=== PATIENT | female | born 1990 | race Hispanic/Latino ===

== ENCOUNTER 2021-08-05 21:33 | Emergency (ER) | payer SELFPAY ==
--- OUTSIDE RECORDS SUMMARY | 2021-08-05 21:36 | XMS REPORT | Continuity of Care Document ---
:1990 Author Organization [facility] t Address [address] [place] [address] Care Team Providers Name Role Phone DR LISANDRO Attending Clinician Unavailable DR LISANDRO Admitting Clinician Unavailable Payers Payer Name Policy Type Policy Number Effective Date Expiration Date S ource Problems This patient has no known problems. Allergies, Adverse Reactions, Alerts Allergy Allergy Status Severity Reaction(s) Onset Inactive Treating Comm ents Source Name Type Date Date Clinician No Known DA Active U 2020-0 [facility] 04-11 [facility] 00:00: e 00 [facility] No Known DA Active U 2020-0 [facility] Allerg 04-11 [facility] 00:00: e 00 [facility] Medications This patient has no known medications. Procedures This patient has no known procedures. Encounters Start End Encounter Admission Attending Care Care Encounter Source Date/Time Date/Time Type Type Clinicians Facility Department ID 2020-04-11 Inpatient [facility] [id number] [facility] 15:59:00 [facility] 2020-03-17 2020-03-17 Outpatient AMMON CANDELARIA E[facility] [id number] 18:22:00 [facility]:30[facility] Results Test Description Test Time Test Comments Results Result Comments Source [employer] 8 Panel *OW* jamie 2020-03-17 22:04:00 Test Item Value Reference Range Interpretation Comme nts GLUCOSE (test code = GGUL) 82 mg/dL 73-118 BUN (test code = GBUN) 15 mg/dL 7-22 CREATININE (test code = GCRE) 0.7 mg/dL 0.6-1.2 CK TOTAL (test code = GCK) 48 U/L 30-190 SODIUM (test code = GNA+) 137 mmol/L 128-145 POTASSIUM (test code = GK+) 3.5 mmol/L 3.6-5.1 L CHLORIDE (test code = GCL-) 101 mmol/L 98-108 TCO2 (test code = GTC02) 27 mmol/L 18-33 URINALYSIS W/O MICROSCOPICOW2020-03-17 21:31:00 Test Item Value Reference Range Interpretation Comments COLOR (test code = Yellow YELLOW COLU) CLARITY (test code = Clear CLEAR CLA) GLUCOSE UR (test Negative NEGATIVE code = UA GLUCOSE) BILI UR (test code = 3+ NEGATIVE A BILE) KETONES UR (test 3+ NEGATIVE A code = MARIAH) SP GRAVITY (test 1.025 1.005-1.030 code = SPGR) PH UR (test code = 6.0 4.5-8.0 PH) PROTEIN UR (test 1+ NEGATIVE A code = PU) NITRITE UR (test Negative NEGATIVE code = NITRITE) UROBIL UR (test code 1.0 E.U./dL = GUROQ) UROBIL UR (test code UROBILINOGEN = GUROQC) REFERENCE RANGE 0.2 - 1.0 EU/dL BLOOD UR (test code Negative NEGATIVE = UA BLOOD) LEUK ES UR (test Negative NEGATIVE code = LEUK) CBC (INCLUDES AUTOMATED DIFFERENTIAL) *2020-03-17 20:30:00 Test Item Value Reference Range Interpretation Comments WBC (test code = WBC) 12.3 10\\S\\3/uL 4.5-11.0 H RBC (test code = RBC) 4.63 10\\S\\6/uL 4.30-5.70 HGB (test code = HBG) 12.8 g/dL 12.0-15.5 HCT (test code = HCT) 40.9 % 35.0-44.0 MCV (test code = MCV) 88.3 fL 81.0-99.0 MCH (test code = MCH) 27.6 pg 27.0-31.0 MCHC (test code = MCHC) 31.3 g/dL 32.0-36.0 L RDW (test code = RDW) 12.9 % 11.5-14.5 PLT (test code = PLT) 316 10\\S\\3/uL 130-400 MPV (test code = OMPV) 8.0 fL 6.2-10.2 NEUTROP # (test code = NE#) 8.7 10\\S\\3/uL 1.6-8.0 H LYMPH # (test code = LY#) 2.4 10\\S\\3/uL 1.1-3.5 MID # (test code = GMID#) 1.2 10\\S\\3/uL 0.0-1.1 H GRA % (test code = GRA%) 70.4 % 35.0-73.0 LYMPH % (test code = GLY%) 19.7 % 20.0-55.0 L MID % (test code = GMID%) 9.9 % 0.0-10.0 SARS-CoV (RAPID ANTIGEN) WH2020-03-17 19:33:00 Test Item Value Reference Range Interpretation Comments SARS-CoV (ANTIGEN) NEGATIVE NEGATIVE (test code = COVAG) COVID AG (test This test has been code = COVAGC) marketed under the FDA Emergency Use Authorization (EUA) to meet challenges of the COVID-19 pandemic. The validation standards normally enforced by the FDA and the College of the [place] [employer] (CAP) are more stringent than those required for this test. Therefore, the result should be interpreted with caution and close attention to other clinical and epidemiological data DIRECT STREP GROUP AOW2020-03-17 19:15:00 Test Item Value Reference Range Interpretation Comments STREP A AG (test code = STREP) POSITIVE NEGATIVE A CHEST 1 VIEW [id number] 07:30:[address] [id number] IMAGING REPORTPatient Name: Devika SAGE of Service: [id number]: 30 Sex: F Order #: [id number] Room: ERDOB: 1990 X-Ray Number: [id number] Record Number: [id number] Hospital Number: [id number] Physician: April URBINA Physician: KATY DUNN.11/20/2018 2:06 AMHistory: Coughing.Technique: Single AP chest projection.Findings: Single chest projection demonstrates normal heart size and clearlungs. The osseous structures appear intact.Impression:No acute- appearing cardiopulmonary abnormalities.Electronically Signed By: Loki Santos M.D., 11/20/2018 7:27 AMLegally authenticated by ELOY Rico 2018-11-20 07:27:[id number] 02:56:00 Test Item Value Reference Range Interpretation Comments WBC (test code = 10.4 K/UL 3.5-10.9 WBC) RBC (test code = 4.66 M/UL 4.0-5.0 RBC) HGB (test code = 12.9 G/DL 11.5-15.5 HGB) HCT (test code = 41.2 % 34-46 HCT) MCV (test code = 88.4 FL 80-98 MCV) MCH (test code = 27.7 PG 28-32 L MCH) MCHC (test code = 31.3 G/DL 32.5-36.5 L MCHC) RDW (test code = 13.3 % 11.5-14.5 RDW) PLT (test code = 375 K/UL 150-450 PLT) MPV (test code = 9.6 FL 7.4-10.4 MPV) MANDIFF (test code = NO MANDIFF) SCAN (test code = NO SCAN) NEUT% (test code = 58.4 % 40-75 NEUT%) LYMPH% (test code = 30.7 % 24-44 LYMPH%) MONO% (test code = 8.1 % 0-13 MONO%) EOS% (test code = 1.5 % 0-4 EOS%) BASO % (test code = 0.5 % 0-2 BASO%) IG (test code = IG) 0 % 0-1 IG% (test code = 0.8 % 0-1 IG% = Metam yelocytes, IG%) Myelocytes, and Promyelocytes. (Immature neutr ophils not including " bands".) > 3% IG indic ates risk of sepsis NRBC% (test code = 0 /100 WBC NRBC%) ABS NEUT (test code 6.1 K/UL 1.2-7.2 = NEUT) NEG STREP SCRN CONFIRM [id number] 06:58:00 Test Item Value Reference Range Interpretation Comments Report Text (test CWJ 2018-11-07 749 code = Report Text) Report Text7 (test NORMAL RESPIRATORY ALEX code = Report Text7) ISOLATED Report Text8 (test PRELIMINARY REPORT code = Report Text8) Report Text9 (test code = Report Text9) Report Text10 (test DMB 2018-11-08 658 code = Report Text10) Report Text11 (test STREP SCREEN NEGATIVE, code = Report CULTURE NEGATIVE FOR Text11) Report Text12 (test GROUP A STREP - FINAL code = Report REPORT. Text12) INFLUENZA [id number] 08:53:00 Test Item Value Reference Range Interpretation Comments FLU A (test code = FLU A) POSITIVE NEGATIVE FLU B (test code = FLU B) NEGATIVE NEGATIVE FLU INTERNAL POSITIVE CNTRL (test PASS PASS code = FLU IPC) INFLUENZA LOT # (test code = 5947082 FLULOT) INFLUENZA EXPIRATION DATE (test 2020-10-31 code = FLUEXP) GROUP A STREP [id number] 08:52:00 Test Item Value Reference Range Interpretation Comments GROUP A STREP SCREEN NEGATIVE NEGATIVE Cultu re set up to (test code = STREPGRA) confi rm negative Strep Screen STREP A INTERNAL POS PASS PASS CNTRL (test code = STRPAIPC) STREP A LOT # (test [id number] code = STRPALOT) STREP A EXPIRATION DATE 2021-01-08 (test code = STRPAEXP) Culture set up to confirm negative Strep Screen
[2021-08-05 22:51] LABS: SARS-COV-2 RT PCR NEGATIVE (NEGATIVE)
--- NOTE | 2021-08-05 23:15 | EDPHYS ---
Physician Documentation [facility] Name: Romina Syed Agent Age: 31 yrs Sex: Female : 1990 Arrival Date: 08/05/2021 Time: 21:36 Bed 10 Private MD: MYRIAM Physician Anton Conklin HPI: 08/05 21:58 This 31 yrs old Female presents to ER via Ambulatory with complaints of Ear cp Pain, BODY ACHE, Congestion, Headache. 21:58 The patient presents with pain, that is acute. The complaints affect the left ear. 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 - Social history:: Smoking status: Patient reports the use of cigarette tobacco products, denies chronic smoking, but will smoke occasionally, Patient uses alcohol, occasionally. Patient/guardian denies using street drugs. ROS: 22:05 Constitutional: Positive for body aches, Negative for chills, fever, poor PO intake. cp 22:05 Eyes: Negative for injury, pain, redness, and discharge. cp 22:05 ENT: Positive for ear pain, Negative for drainage from ear(s), sore throat, difficulty swallowing, difficulty handling secretions. 22:05 Cardiovascular: Negative for chest pain. 22:05 Respiratory: Positive for cough, Negative for shortness of breath, wheezing. 22:05 Abdomen/GI: Negative for vomiting, diarrhea, constipation. 22:05 Neuro: Positive for headache, Negative for altered mental status, weakness. 22:05 All other systems are negative. Exam: 22:10 Constitutional: The patient appears in no acute distress, alert, awake, comfortable, cp non-toxic, well developed, well nourished. 22:10 Head/Face: Normocephalic, atraumatic. cp 22:10 Eyes: Periorbital structures: appear normal, Conjunctiva: normal, no exudate, no injection, Sclera: no appreciated abnormality, Lids and lashes: appear normal, bilaterally. 22:10 ENT: External ear(s): are unremarkable, Ear canal(s): are normal, clear, TM's: bulging, is not appreciated, bilaterally, erythema, that is mild, on the left, Nose: is normal, Mouth: Lips: moist, Oral mucosa: moist, Posterior pharynx: Airway: no evidence of obstruction, patent. 22:10 Neck: Lymph nodes: no appreciated lymphadenopathy. 22:10 Chest/axilla: Inspection: normal. 22:10 Cardiovascular: Rate: normal, Rhythm: regular. 22:10 Respiratory: the patient does not display signs of respiratory distress, Respirations: normal, no use of accessory muscles, no retractions, labored breathing, is not present, Breath sounds: are clear throughout, no decreased breath sounds, no stridor, no wheezing. 22:10 Abdomen/GI: Exam negative for discomfort, distension, guarding, Inspection: abdomen appears normal. Vital Signs: 21:48 BP 117 / 86; Pulse 84; Resp 16 S; Temp 98(O); Pulse Ox 100% on R/A; Weight 72.57 kg bb (R); Height 5 ft. 6 in. (167.64 cm) (R); Pain 7/10; 23:12 BP 121 / 88; Pulse 80; Resp 16; Pulse Ox 100% on R/A; ld1 21:48 Body Mass Index 25.82 (72.57 kg, 167.64 cm) bb MDM: 21:[address] [facility] 23:14 Data reviewed: vital signs, nurses notes, lab test result(s). cp 23:14 Differential diagnosis: otitis media, otitis externa, strep throat, COVID-19, cp influenza. Counseling: I had a detailed discussion with the patient and/or guardian regarding: the historical points, exam findings, and any diagnostic results supporting the discharge/admit diagnosis, to return to the emergency department if symptoms worsen or persist or if there are any questions or concerns that arise at home. 08/05 22:08 Order name: COVID-19/FLU A+B; Complete Time: 23:13 EDMS Administered Medications: No medications were administered Disposition Summary: 08/05/21 23:14 Discharge Ordered Location: Home cp Problem: new cp Symptoms: have improved cp Condition: Stable cp Diagnosis - Otitis media, unspecified, left ear cp - Acute upper respiratory infection, unspecified cp Followup: cp - With: Private Physician - When: 2 - 3 days - Reason: Worsening of condition Discharge Instructions: - Discharge Summary Sheet cp - Otitis Media, Adult cp - Upper Respiratory Infection, Adult cp - Cool Mist Vaporizer cp Forms: - Medication Reconciliation Form cp - Thank You Letter cp - Antibiotic Education cp - Prescription Opioid Use cp - Work release form ld1 Prescriptions: - Augmentin 875-125 mg Oral Tablet - take 1 tablet by ORAL route every 12 hours for 10 days; 20 tablet; Refills: 0, cp Product Selection Permitted - Tessalon Perles 100 mg Oral Capsule - take 2 capsule by ORAL route every 8 hours As needed; 30 capsule; Refills: 0, cp Product Selection Permitted Addendum: 08/08/2021 07:48 Co-signature as Attending Physician, Anton Conklin MD I agree with the assessment and c coronel plan of care. Signatures: Dispatcher [employer] EDAnton Glez MD MD cha Ballard, Brenda, RN RN bb Anton Broussard PA PA cp Corrections: (The following items were deleted from the chart) 08/05 22:08 21:55 CORONAVIRUS+MR.LAB.BRZ ordered. EDMS EDMS 22:08 21:55 Influenza Screen (A \T\ B)+BA.LAB.BRZ ordered. EDMS EDMS
--- NOTE | 2021-08-05 23:15 | ER ---
Nurse's Notes [facility] [place] Name: Romina Syed Agent Age: 31 yrs Sex: Female : 1990 Arrival Date: 08/05/2021 Time: 21:36 Bed 10 Private MD: Diagnosis: Otitis media, unspecified, left ear;Acute upper respiratory infection, unspecified Presentation: 08/05 21:48 Chief complaint: Patient states: she is having ear pain, cough, body aches, headache bb and a runny nose x 2 days is taking OTC medications with no relief. Coronavirus screen: headache, muscle pain, runny nose, Client presents with at least one sign or symptom that may indicate coronavirus-19. Standard/surgical mask placed on the client. Ebola Screen: No symptoms or risks identified at this time. Initial Sepsis Screen: Does the patient meet any 2 criteria? No. Patient's initial sepsis screen is negative. Does the patient have a suspected source of infection? No. Patient's initial sepsis screen is negative. Risk Assessment: Do you want to hurt yourself or someone else? Patient reports no desire to harm self or others. Onset of symptoms was August 2021. 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 - Social history:: Smoking status: Patient reports the use of cigarette tobacco products, denies chronic smoking, but will smoke occasionally, Patient uses alcohol, occasionally. Patient/guardian denies using street drugs. Screenin:12 Abuse screen: Denies threats or abuse. Denies injuries from another. Nutritional ld1 screening: No deficits noted. Tuberculosis screening: No symptoms or risk factors identified. Fall Risk None identified. Assessment: 23:11 Reassessment: See triage assessment. General: Appears in no apparent distress. ld1 comfortable, Behavior is calm, cooperative, appropriate for age. Pain: Denies pain. Neuro: Level of Consciousness is Oriented to person, place, time, situation. EENT: No deficits noted. Vital Signs: 21:48 BP 117 / 86; Pulse 84; Resp 16 S; Temp 98(O); Pulse Ox 100% on R/A; Weight 72.57 kg bb (R); Height 5 ft. 6 in. (167.64 cm) (R); Pain 7/10; 23:12 BP 121 / 88; Pulse 80; Resp 16; Pulse Ox 100% on R/A; ld1 21:48 Body Mass Index 25.82 (72.57 kg, 167.64 cm) ED Course: 21:36 Patient arrived in ED. es 21:42 Anton Broussard PA is PHCP. cp 21:42 Anton Conklin MD is Attending Physician. cp 21:50 Triage completed. bb 21:50 Arm band placed on Patient placed in an exam room. Family accompanied patient. bb 23:12 Patient has correct armband on for positive identification. Bed in low position. Call ld1 light in reach. Side rails up X2. Pulse ox on. NIBP on. 23:12 No provider procedures requiring assistance completed. Patient did not have IV access ld1 during this emergency room visit. Administered Medications: No medications were administered Outcome: 23:14 Discharge ordered by . cp 23:26 Discharged to home ambulatory. ld1 23:26 Condition: stable 23:26 Discharge instructions given to patient, Instructed on discharge instructions, follow up and referral plans. medication usage, Demonstrated understanding of instructions, follow-up care, medications, Prescriptions given X 2. 23:26 Patient left the ED. ld1 Signatures: Ally Mcdaniels Brenda RN RN bb Anton Broussard PA PA Martha Graves, RN RN ld1
[2021-08-05 23:40] VITALS: TEMP 98; O2SAT 100
[2021-08-05 23:42] VITALS: BP 121/88
== END 2021-08-05 23:26 | disposition home or self-care (01) ==
LOC: ER 21:33
DX: H66.92 Otitis media, unspecified, left ear (principal); J06.9 Acute upper respiratory infection, unspecified; Z20.822 Contact with and (suspected) exposure to COVID-19
CPT/HCPCS: 0240U; 99283

== ENCOUNTER 2021-09-06 10:31 | Emergency (ER) | payer SELFPAY ==
--- OUTSIDE RECORDS SUMMARY | 2021-09-06 10:34 | XMS REPORT | Continuity of Care Document ---
:1990 Author Organization [facility] t Address [address] [place] [address] Care Team Providers Name Role Phone DR LISANDRO Attending Clinician Unavailable DR LISANDRO Admitting Clinician Unavailable Payers Payer Name Policy Type Policy Number Effective Date Expiration Date S ource Problems This patient has no known problems. Allergies, Adverse Reactions, Alerts Allergy Allergy Status Severity Reaction(s) Onset Inactive Treating Comm ents Source Name Type Date Date Clinician No Known DA Active U 2020-0 [facility] Allerg 04-11 [facility] 00:00: e 00 [facility] No Known DA Active U 2020-0 [facility] Allergie 04-11 [facility] 00:00: e 00 [facility] Medications This patient has no known medications. Procedures This patient has no known procedures. Encounters Start End Encounter Admission Attending Care Care Encounter Source Date/Time Date/Time Type Type Clinicians Facility Department ID 2020-04-11 Inpatient [facility] [id number] [facility] 15:59:00 [facility] 2020-03-17 2020-03-17 Outpatient AMMON CANDELARIA ECC [id number] 18:22:00 [facility] Results Test Description Test Time Test Comments [...] the FDA and the College of the [place] [employer] (CAP) are more stringent than those required for this test. Therefore, the result should be interpreted with caution and close attention to other clinical and epidemiological data DIRECT STREP GROUP AOW2020-03-17 19:15:00 Test Item Value Reference Range Interpretation Comments STREP A AG (test code = STREP) POSITIVE NEGATIVE A CHEST 1 VIEW [id number] 07:30:[address] [id number] IMAGING REPORTPatient Name: Devika SAGE of Service: [id number]: 28 Sex: F Order #: [id number] Room: ERDOB: 1990 X-Ray Number: [id number] Record Number: [id number] Hospital Number: [id number] Physician: April URBINA Physician: KATY DUNN.11/20/2018 2:06 AMHistory: Coughing.Technique: Single AP chest projection.Findings: Single chest projection demonstrates normal heart size and clearlungs. The osseous structures appear intact.Impression:No acute- appearing cardiopulmonary abnormalities.Electronically Signed By: Loki Santos M.D., 11/20/2018 7:27 AMLegally authenticated by ELOY Rico 2018-11-20 07:27:[id number] 02:56:00 Test Item Value Reference Range Interpretation [...] 1.2-7.2 = NEUT) NEG STREP SCRN CONFIRM [id number] 06:58:00 Test Item Value Reference Range Interpretation [...] FINAL code = Report REPORT. Text12) INFLUENZA [id number] 08:53:00 Test Item Value Reference Range Interpretation Comments FLU A (test code = FLU A) POSITIVE NEGATIVE FLU B (test code = FLU B) NEGATIVE NEGATIVE FLU INTERNAL POSITIVE CNTRL (test PASS PASS code = FLU IPC) INFLUENZA LOT # (test code = [id number] FLULOT) INFLUENZA EXPIRATION DATE (test 2020-10-31 code = FLUEXP) GROUP A STREP [id number] 08:52:00 Test Item Value Reference Range Interpretation Comments GROUP A STREP SCREEN NEGATIVE NEGATIVE Cultu re set up to (test code = STREPGRA) confi rm negative Strep Screen STREP A INTERNAL POS PASS PASS CNTRL (test code = STRPAIPC) STREP A LOT # (test [id number] code = STRPALOT) STREP A EXPIRATION DATE 2021-01-08 (test code = STRPAEXP) Culture set up to confirm negative Strep Screen
[2021-09-06 12:44] LABS: SARS-COV-2 RT PCR POSITIVE (NEGATIVE)
--- NOTE | 2021-09-06 13:01 | ER ---
Nurse's Notes [facility] [place] Name: Romina Syed Agent Age: 31 yrs Sex: Female : 1990 Arrival Date: 09/06/2021 Time: 10:32 Bed Waiting Private MD: Diagnosis: Coronavirus infection, unspecified Presentation: 09/06 11:13 Chief complaint: Patient states: Cough for 2 weeks. Congestion, body aches, sore ll1 throat, BURNS for 2 days. Coronavirus screen: Vaccine status: Patient reports receiving the 1st dose of the Covid vaccine. Client denies travel out of the [place] in the last 14 days. congestion, cough unrelated to allergies, difficulty breathing, shortness of breath. Ebola Screen: Patient denies travel to an Ebola-affected area in the 21 days before illness onset. Initial Sepsis Screen: Does the patient meet any 2 criteria? No. Patient's initial sepsis screen is negative. Does the patient have a suspected source of infection? No. Patient's initial sepsis screen is negative. Risk Assessment: Do you want to hurt yourself or someone else? Patient reports no desire to harm self or others. Onset of symptoms was August 22, 2021. 11:13 Method Of Arrival: Ambulatory ll1 11:13 Acuity: DEISY 4 ll1 Triage Assessment: 11:16 General: Appears in no apparent distress. Behavior is calm, cooperative, appropriate ll1 for age. Pain: Complains of pain in head Quality of pain is described as aching. EENT: Nares are clear Reports nasal congestion. Neuro: No deficits noted. Cardiovascular: No deficits noted. Respiratory: Reports cough that is Onset: The symptoms/episode began/occurred 2 weeks, the patient has mild shortness of breath. 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 - Social history:: Smoking status: Patient reports the use of cigarette tobacco products, smokes one-half pack cigarettes per day. Screenin:17 Abuse screen: Denies threats or abuse. Nutritional screening: No deficits noted. ll1 Tuberculosis screening: No symptoms or risk factors identified. Fall Risk Total Riggins Fall Scale indicates No Risk (0-24 pts). Assessment: 12:15 Reassessment: No changes from previously documented assessment. Patient and/or family ll1 updated on plan of care and expected duration. Pain level reassessed. Patient is alert, oriented x 3, equal unlabored respirations, skin warm/dry/pink. Cardiovascular: Rhythm is regular. Respiratory: Airway is patent Respiratory effort is even, unlabored. 13:05 Reassessment: No changes from previously documented assessment. Patient and/or family ll1 updated on plan of care and expected duration. Pain level reassessed. Patient is alert, oriented x 3, equal unlabored respirations, skin warm/dry/pink. Respiratory: Breath sounds are clear bilaterally. Vital Signs: 11:13 BP 170 / 80; Resp 16; Temp 97.0; Pulse Ox 100% ; Weight 74.84 kg; Height 5 ft. 6 in. ll1 (167.64 cm); Pain 5/10; 11:13 Pulse 90; ll1 11:13 Body Mass Index 26.63 (74.84 kg, 167.64 cm) ll1 ED Course: 10:32 Patient arrived in ED. am2 11:10 Leela Blanc FNP-C is [facility]. kb 11:10 Yung Bliss MD is Attending Physician. kb 11:14 Triage completed. ll1 11:15 Arm band placed on. ll1 11:17 Patient has correct armband on for positive identification. Bed in low position. Call ll1 light in reach. Side rails up X 1. Cardiac monitoring not applicable on this patient. 13:09 No provider procedures requiring assistance completed. Patient did not have IV access ll1 during this emergency room visit. Administered Medications: No medications were administered Outcome: 13:00 Discharge ordered by . kb 13:09 Patient left the ED. ll1 13:09 Discharged to home ambulatory. ll1 13:09 Condition: stable 13:09 Discharge instructions given to patient, Instructed on discharge instructions, follow up and referral plans. Demonstrated understanding of instructions, follow-up care. Signatures: Leela Blanc FNP-C FNP-Chaya Nicole am2 Morgan Stubbs RN RN ll1 Corrections: (The following items were deleted from the chart) 11:16 11:13 Pulse 73bpm; Resp 16bpm; Pulse Ox 100%; Temp 97.0F; 74.84 kg; Height 5 ft. 6 in.; ll1 BMI: 26.6; Pain 5/10; ll1
--- NOTE | 2021-09-06 13:01 | EDPHYS ---
Physician Documentation [facility] Name: Romina Syed Agent Age: 31 yrs Sex: Female : 1990 Arrival Date: 09/06/2021 Time: 10:32 Bed Waiting Private MD: ED Physician Yung Bliss HPI: 09/06 12:59 This 31 yrs old Female presents to ER via Ambulatory with complaints of Cough, kb Breathing Difficulty, Headache, Chest Pain. 12:59 The patient or guardian reports cough, that is intermittent, described as mild, flu kb symptoms, low-grade fever, myalgias. Onset: The symptoms/episode began/occurred 2 day(s) ago. Severity of symptoms: At their worst the symptoms were moderate, in the emergency department the symptoms are unchanged. Modifying factors: The symptoms are alleviated by nothing, the symptoms are aggravated by nothing. Associated signs and symptoms: Pertinent positives: sore throat, Pertinent negatives: chest pain, diarrhea, ear ache, fever, nausea, rhinorrhea, vomiting. The patient has not experienced similar symptoms in the past. The patient has not recently seen a physician. Pt complains of cough, congestion, sore throat, headache and bodyaches for 2 dasy. . 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 - Social history:: Smoking status: Patient reports the use of cigarette tobacco products, smokes one-half pack cigarettes per day. ROS: 12:58 Abdomen/GI: Negative for abdominal pain, nausea, vomiting, diarrhea, and constipation. kb 12:58 Constitutional: Positive for body aches, malaise. 12:58 ENT: Positive for sinus congestion, sore throat. 12:58 Respiratory: Positive for cough, Negative for dyspnea on exertion, hemoptysis, orthopnea, pleurisy, shortness of breath, sputum production, wheezing. 12:58 Neuro: Positive for headache. 12:58 All other systems are negative. Exam: 12:58 Constitutional: This is a well developed, well nourished patient who is awake, alert, kb and in no acute distress. Head/Face: Normocephalic, atraumatic. ENT: Moist Mucous membranes Cardiovascular: Regular rate and rhythm with a normal S1 and S2. No gallops, murmurs, or rubs. No pulse deficits. Respiratory: Respirations even and unlabored. No increased work of breathing. Talking in full sentences Skin: Warm, dry with normal turgor. Normal color. MS/ Extremity: Pulses equal, no cyanosis. Neurovascular intact. Full, normal range of motion. Neuro: Awake and alert, GCS 15, oriented to person, place, time, and situation. Moves all extremities. Normal gait. Psych: Awake, alert, with orientation to person, place and time. Behavior, mood, and affect are within normal limits. Vital Signs: 11:13 BP 170 / 80; Resp 16; Temp 97.0; Pulse Ox 100% ; Weight 74.84 kg; Height 5 ft. 6 in. ll1 (167.64 cm); Pain 5/10; 11:13 Pulse 90; ll1 11:13 Body Mass Index 26.63 (74.84 kg, 167.64 cm) ll1 MDM: 11:10 Patient medically screened. kb 12:59 Data reviewed: vital signs, nurses notes. Data interpreted: Pulse oximetry: on room air kb is 100 %. Interpretation: normal. Counseling: I had a detailed discussion with the patient and/or guardian regarding: the historical points, exam findings, and any diagnostic results supporting the discharge/admit diagnosis, lab results, the need for outpatient follow up, a family practitioner, to return to the emergency department if symptoms worsen or persist or if there are any questions or concerns that arise at home. 09/06 11:16 Order name: COVID-19/FLU A+B (Document "Date of Onset" if Symptomatic) 09/06 11:16 Order name: COVID-19/FLU A+B; Complete Time: 12:55 EDMS Administered Medications: No medications were administered Disposition: 17:43 Co-signature as Attending Physician, Yung Bliss MD I agree with the assessment and rn plan of care. Attestation: The patient's history, exam findings, diagnostics, and a summary of any interventions or procedures was reviewed in detail with Leela GUTIERREZ. Disposition Summary: 09/06/21 13:00 Discharge Ordered Location: Home kb Condition: Stable kb Diagnosis - Coronavirus infection, unspecified kb Followup: kb - With: Emergency Department - When: As needed - Reason: Worsening of condition Followup: kb - With: Private Physician - When: 2 - 3 days - Reason: Recheck today's complaints, Continuance of care, Re-evaluation by your physician Discharge Instructions: - Discharge Summary Sheet kb - Viral Respiratory Infection, [id number] kb - COVID-19 kb Forms: - Medication Reconciliation Form kb - Thank You Letter kb - Antibiotic Education kb - Prescription Opioid Use kb - Work release form ll1 Signatures: Dispatcher [employer] EDLeela Durham, HEAVY MEDIA OPERATOR-C HEAVY MEDIA OPERATOR-Yung Alvarez MD MD rn Morgan Stubbs RN RN ll1
[2021-09-06 13:16] VITALS: BP 170/80; TEMP 97; O2SAT 100
== END 2021-09-06 13:09 | disposition home or self-care (01) ==
LOC: ER 10:31
DX: U07.1 COVID-19 (principal); F17.210 Nicotine dependence, cigarettes, uncomplicated
CPT/HCPCS: 0240U; 99281

== ENCOUNTER 2021-09-07 17:27 | Emergency (ER) | payer SELFPAY ==
--- OUTSIDE RECORDS SUMMARY | 2021-09-07 17:30 | XMS REPORT | Continuity of Care Document ---
:1990 Author Organization [facility] t Address [address] [place] [address] Care Team Providers Name Role Phone DR [...] Known DA Active U 2020-0 [facility] Allergie 04-11 [facility] 00:00: e 00 [facility] No Known DA Active U 2020-0 [facility] Allergie 04-11 [facility] 00:00: e 00 [facility] Medications This patient has no known medications. Procedures This patient has no known procedures. Encounters Start End Encounter Admission Attending Care Care Encounter Source Date/Time Date/Time Type Type Clinicians Facility Department ID 2020-04-11 Inpatient [facility] [id number] [facility] 15:59:00 [facility] 2020-03-17 2020-03-17 Outpatient [facility] [id number] 18:22:00 [facility] Results Test Description Test Time Test [...] the FDA and the [employer] (CAP) are more stringent than those required for this test. Therefore, the result should be interpreted with caution and close attention to other clinical and epidemiological data DIRECT STREP GROUP AOW2020-03-17 19:15:00 Test Item Value Reference Range Interpretation Comments STREP A AG (test code = STREP) POSITIVE NEGATIVE A CHEST 1 VIEW [id number] 07:30:[address] [address] REPORTPatient Name: Devika SAGE of Service: [id number]: 28 Sex: F Order #: [id number] Room: QERDOB: 1990 X-Ray Number: [id number] Record Number: [id number] [facility] Number: [id number] Physician: April URBINA Physician: KATY DUNN.11/20/2018 2:06 AMHistory: Coughing.Technique: Single AP chest projection.Findings: Single chest projection demonstrates normal heart size and clearlungs. The osseous structures appear intact.Impression:No acute- appearing cardiopulmonary abnormalities.Electronically Signed By: Loki Santos M.D., 11/20/2018 7:27 AMLegally authenticated by ELOY Rico 2018-11-20 07:27:[id number] 02:56:00 Test Item Value Reference Range Interpretation [...] 1.2-7.2 = NEUT) NEG STREP SCRN CONFIRM [id number] 06:58:00 Test Item Value Reference Range Interpretation [...] FINAL code = Report REPORT. Text12) INFLUENZA [id number] 08:53:00 Test Item Value Reference Range Interpretation Comments FLU A (test code = FLU A) POSITIVE NEGATIVE FLU B (test code = FLU B) NEGATIVE NEGATIVE FLU INTERNAL POSITIVE CNTRL (test PASS PASS code = FLU IPC) INFLUENZA LOT # (test code = 7356067 FLULOT) INFLUENZA EXPIRATION DATE (test 2020-10-31 code = FLUEXP) GROUP A STREP [id number] 08:52:00 Test Item Value Reference Range Interpretation Comments GROUP A STREP SCREEN NEGATIVE NEGATIVE Cultu re set up to (test code = STREPGRA) confi rm negative Strep Screen STREP A INTERNAL POS PASS PASS CNTRL (test code = STRPAIPC) STREP A LOT # (test [id number] code = STRPALOT) STREP A EXPIRATION DATE 2021-01-08 (test code = STRPAEXP) Culture set up to confirm negative Strep Screen
[2021-09-07] MEDS ORDERED: HYDROCODONE/CHLORPHEN 5 ML/OSYR ONE (18:36)
--- NOTE | 2021-09-07 18:53 | RAD REPORT ---
EXAM DESCRIPTION: Vega Cai (2 Views)09/07/2021 6:43 pm CLINICAL HISTORY: Cough COMPARISON: None FINDINGS: The lungs appear clear of acute infiltrate. The heart is normal size IMPRESSION: No acute abnormalities displayed
--- NOTE | 2021-09-07 21:08 | ER ---
Nurse's Notes [facility] Name: Romina Syed Agent Age: 31 yrs Sex: Female : 1990 Arrival Date: 09/07/2021 Time: 17:29 Bed DIS1 Private MD: Diagnosis: Coronavirus infection, unspecified Presentation: 09/07 18:28 Chief complaint: Patient states: I am covid positive. I have been coughing a lot, there ld1 is blood in my mucos. It hurts to breath from all of the coughing. Coronavirus screen: Client presents with at least one sign or symptom that may indicate coronavirus-19. Standard/surgical mask placed on the client. Ebola Screen: No symptoms or risks identified at this time. Initial Sepsis Screen: Does the patient meet any 2 criteria? No. Patient's initial sepsis screen is negative. Does the patient have a suspected source of infection? No. Patient's initial sepsis screen is negative. Risk Assessment: Do you want to hurt yourself or someone else? Patient reports no desire to harm self or others. Onset of symptoms was September 07, 2021. 18:28 Method Of Arrival: Ambulatory ld1 18:28 Acuity: DEISY 4 ld1 Triage Assessment: 18:30 General: Appears in no apparent distress. comfortable, Behavior is calm, cooperative, ld1 appropriate for age. Pain: Denies pain. Neuro: Level of Consciousness is awake, alert, obeys commands, Oriented to person, place, time, situation. Respiratory: Reports shortness of breath cough that is Airway is patent Respiratory effort is even, unlabored, Respiratory pattern is regular, symmetrical, Onset: The symptoms/episode began/occurred gradually, the patient has moderate shortness of breath. 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 - Social history:: Smoking status: Patient denies any tobacco usage or history of. Patient/guardian denies using alcohol. Assessment: 18:33 Reassessment: LUZ MARINA Garibay in triage assessing patient. ld1 21:17 Reassessment: Patient is alert, oriented x 3, equal unlabored respirations, skin bb warm/dry/pink. pt seen by this RN at discharge pt verbalized understanding of and agrees to plan of care discharge instructions given pt ambulated with steady gait to exit. Vital Signs: 18:30 BP 111 / 76; Pulse 85; Resp 20; Temp 98.2(O); Pulse Ox 100% ; Weight 74.84 kg; Height 5 ld1 ft. 5 in. (165.10 cm); Pain 0/10; 21:18 BP 132 / 82; Pulse 88; Resp 18 S; Temp 97.9(O); Pulse Ox 100% on R/A; bb 18:30 Body Mass Index 27.46 (74.84 kg, 165.10 cm) ld1 ED Course: 17:29 Patient arrived in ED. mr 18:29 Triage completed. ld1 18:30 Roscoe Vasquez NP is PHCP. pm1 18:30 Yung Bliss MD is Attending Physician. pm1 18:30 Arm band placed on right wrist. ld1 18:43 XRAY Chest Pa And Lat (2 Views) In Process Unspecified. EDMS 21:19 No provider procedures requiring assistance completed. Patient did not have IV access bb during this emergency room visit. Administered Medications: 18:32 Drug: Tussionex Pennkinetic ER (chlorpheniramine-hydrocodone) Suspension 5 ml Route: PO;ld1 Outcome: 21:07 Discharge ordered by . pm1 21:18 Discharged to home ambulatory. bb 21:18 Condition: stable 21:18 Discharge instructions given to patient, Instructed on discharge instructions, follow up and referral plans. medication usage, Demonstrated understanding of instructions, follow-up care, medications, Prescriptions given X 1. 21:19 Patient left the ED. bb Signatures: Dispatcher [employer] MYRIAMKS Dawna Coelho Brenda, RN RN bb Roscoe Vasquez NP ACTIVATED SLUDGE OPERATOR pm1 Martha Woods RN RN ld1
--- NOTE | 2021-09-07 21:08 | EDPHYS ---
Physician Documentation [facility] Name: Romina Syed Agent Age: 31 yrs Sex: Female : 1990 Arrival Date: 09/07/2021 Time: 17:29 Bed DIS1 Private MD: ED Physician Yung Bliss HPI: 09/07 18:34 This 31 yrs old Female presents to ER via Ambulatory with complaints of pm1 Covid+, Cough, Shortness Of Breath. 18:34 The patient or guardian reports cough, with productive sputum. Onset: The pm1 symptoms/episode began/occurred yesterday. Severity of symptoms: in the emergency department the symptoms are actually worse. Modifying factors: The symptoms are alleviated by nothing, the symptoms are aggravated by nothing. Associated signs and symptoms: Pertinent positives: fever, Pertinent negatives: chest pain, diarrhea, sore throat, vomiting. The patient has been recently seen at the [facility], yesterday, for similar complaints diagnosed with covid. 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 - Social history:: Smoking status: Patient denies any tobacco usage or history of. Patient/guardian denies using alcohol. ROS: 18:34 Eyes: Negative for injury, pain, redness, and discharge, ENT: Negative for injury, pm1 pain, and discharge, Cardiovascular: Negative for chest pain, palpitations, and edema. 18:34 Abdomen/GI: Negative for abdominal pain, nausea, vomiting, diarrhea, and constipation, Back: Negative for injury and pain, MS/Extremity: Negative for injury and deformity, Skin: Negative for injury, rash, and discoloration. 18:34 Neuro: Negative for headache, weakness, numbness, tingling, and seizure. 18:34 Constitutional: Positive for body aches, fever, Negative for poor PO intake. 18:34 Respiratory: Positive for cough, shortness of breath. 18:34 All other systems are negative. Exam: 18:34 Constitutional: This is a well developed, well nourished patient who is awake, alert, pm1 and in no acute distress. Head/Face: Normocephalic, atraumatic. 18:34 Skin: Warm, dry with normal turgor. Normal color with no rashes, no lesions, and no evidence of cellulitis. MS/ Extremity: Pulses equal, no cyanosis. Neurovascular intact. Full, normal range of motion. 18:34 Cardiovascular: Exam negative for acute changes, Rate: normal, Rhythm: regular, Pulses: no pulse deficits are appreciated. 18:34 Respiratory: Exam negative for acute changes, respiratory distress, shortness of breath, Breath sounds: are clear throughout. 18:34 Neuro: Exam negative for acute changes, Orientation: is normal, Mentation: is normal, Motor: is normal, moves all fours, Gait: is steady, at a normal pace, without difficulty. Vital Signs: 18:30 BP 111 / 76; Pulse 85; Resp 20; Temp 98.2(O); Pulse Ox 100% ; Weight 74.84 kg; Height 5 ld1 ft. 5 in. (165.10 cm); Pain 0/10; 21:18 BP 132 / 82; Pulse 88; Resp 18 S; Temp 97.9(O); Pulse Ox 100% on R/A; bb 18:30 Body Mass Index 27.46 (74.84 kg, 165.10 cm) ld1 MDM: 18:42 Patient medically screened. pm1 21:07 Data reviewed: vital signs. Data interpreted: Pulse oximetry: on room air is 100 %. pm1 Interpretation: normal. Counseling: I had a detailed discussion with the patient and/or guardian regarding: the historical points, exam findings, and any diagnostic results supporting the discharge/admit diagnosis, radiology results, the need for outpatient follow up, to return to the emergency department if symptoms worsen or persist or if there are any questions or concerns that arise at home. 09/07 18:11 Order name: XRAY Chest Pa And Lat (2 Views); Complete Time: 18:54 rn Administered Medications: 18:32 Drug: Tussionex Pennkinetic ER (chlorpheniramine-hydrocodone) Suspension 5 ml Route: PO;ld1 Disposition Summary: 01/05/22 21:07 Discharge Ordered Location: Home pm1 Problem: new pm1 Symptoms: have improved pm1 Condition: Stable pm1 Diagnosis - Coronavirus infection, unspecified pm1 Followup: pm1 - With: Emergency Department - When: As needed - Reason: Worsening of condition Followup: pm1 - With: Private Physician - When: 2 - 3 days - Reason: Recheck today's complaints, Continuance of care, Re-evaluation by your physician Discharge Instructions: - Discharge Summary Sheet pm1 - COVID-19 pm1 - COVID-19 Frequently Asked Questions pm1 - 10 Things You Can Do to Manage Your COVID-19 Symptoms at Home - [facility] pm1 - COVID-19: Quarantine vs. Isolation - [facility] pm1 Forms: - Medication Reconciliation Form pm1 - Thank You Letter pm1 - Antibiotic Education pm1 - Prescription Opioid Use pm1 - Work release form pm1 Prescriptions: - Guaifenesin AC 10-100 mg/5 mL Oral Liquid - take 10 milliliters by ORAL route every 4 hours As needed; 240 milliliter; pm1 Refills: 0, Product Selection Permitted Addendum: 09/12/2021 07:03 Co-signature as Attending Physician, Yung Bliss MD. r n Signatures: Dispatcher [employer] EDYung Cifuentes MD MD rn Roscoe Vasquez, DEMARCO TOOL REPAIRER BENCH pm1 Martha Woods RN RN ld1 Corrections: (The following items were deleted from the chart) 09/07 22:16 18:34 Constitutional: Negative for fever, chills, and weight loss, pm1 pm1
[2021-09-07 21:23] VITALS: O2SAT 100
[2021-09-07 21:25] VITALS: BP 132/82; TEMP 97.9
== END 2021-09-07 21:19 | disposition home or self-care (01) ==
LOC: ER 17:27
DX: U07.1 COVID-19 (principal)
CPT/HCPCS: 71046; 99283